=== PATIENT | female | born 1955 | race Caucasian/White ===

== ENCOUNTER → 2018-05-01 15:09 | Outpatient (CLI) | payer MEDICARE, OTHER, SELFPAY ==
[2018-05-01 15:45] LABS: Add Manual Diff / Slide Review NO; Basophils Percent Auto 0.9 % (0-2); Eosinophils Percent Auto 0.4 % (2-4); Hematocrit 40.1 % (36-46); Hemoglobin 13.5 g/dL (12.0-16.0); Lymphocytes Percent Auto 28.2 % (25-40); Mean Corpuscular HGB Conc 33.8 % (30-36); Mean Corpuscular Hemoglobin 31.4 PG (26-34); Mean Corpuscular Volume 92.8 fL (80-100); Monocytes Percent Auto 6.2 % (3-14); Neutrophils Absolute Auto 4000 /uL (3000-5900); Neutrophils Percent Auto 64.3 % (50-75); Platelet Count 226 X10^3/uL (150-400); Red Blood Cell Count 4.32 X10^6/uL (4.0-5.2); Red Cell Distribution Width 13.3 % (11.6-14.8); White Blood Cell Count 6.3 X10^3/uL (4.5-11.0)
[2018-05-01 16:05] LABS: Alanine Aminotransferase 27 IU/L (9-52); Albumin 4.5 g/dL (3.5-5.0); Albumin Globulin Ratio 1.6 (1.0-2.8); Alkaline Phosphatase 48 U/L (38-126); Aspartate Aminotransferase 31 IU/L (14-36); BUN Creatinine Ratio 26.3 (6-22); Bilirubin Total 0.2 mg/dL (0.2-1.3); Blood Urea Nitrogen 21 mg/dL (7-17); Calcium 9.5 mg/dL (8.4-10.2); Carbon Dioxide 29 mmol/L (22-32); Chloride 103 mmol/L (98-107); Estimated Glomerular Filt Rate > 60.0 mL/min (>60); Globulin 2.9 g/dL (1.7-4.1); Glucose 99 mg/dL (80-110); HEMOLYSIS < 15 (0-50); Potassium 4.5 mmol/L (3.4-5.1); Sodium 141 mmol/L (137-145); Total Protein 7.4 g/dL (6.3-8.2)
== END ==
PROVIDERS: Family Provider Family Medicine; PCP Family Medicine; Visit Provider Nurse Practitioner Gerontology
DX: D05.12 Intraductal carcinoma in situ of left breast (principal)
CPT/HCPCS: 36415; 80053; 85025; 99213

== ENCOUNTER → 2018-07-26 08:59 | Outpatient (CLI) | payer MEDICARE, OTHER, SELFPAY ==
--- NOTE | 2018-07-26 | DI.MG.S_ITS ---
BILATERAL DIGITAL SCREENING MAMMOGRAM 3D/2D WITH CAD: 07/26/2018 CLINICAL: Routine screening. Comparison is made to exams dated: 12/30/2016 mammogram, 12/29/2015 mammogram, 07/12/2017 mammogram - [facility], and 07/26/2017 stereotactic biopsy - [facility]. The tissue of both breasts is heterogeneously dense. This may lower the sensitivity of mammography. Current study was also evaluated with a Computer Aided Detection (CAD) system. There are benign post operative findings in the left breast. There is irregular equal density architectural distortion with an indistinct margin in the left breast at 7 o'clock anterior depth. This correlates with surgery. There are surgical clips, a post-surgical scar, skin retraction, thickening, and trabecular thickening associated with the architectural distortion. No other significant masses, calcifications, or other findings are seen in either breast. IMPRESSION: The irregular equal density architectural distortion in the left breast is consistent with a previous surgery and is benign. There is no mammographic evidence of malignancy. Return to annual mammogram screening schedule is recommended.(01/21/2019) This exam was interpreted at Station ID: [id number]. NOTE: For mammograms, a report in lay terms will be sent to the patient. Approximately 15% of breast malignancies will not be visualized mammographically. In the management of a palpable breast mass, a negative mammogram must not discourage biopsy of a clinically suspicious lesion. Electronically Signed By: Lito chamberlain/sander:07/26/2018 11:37:05 copy to: Rupinder Chavez letter sent: Normal Exam ACR BI-RADS Category 2: Benign Finding(s) 3342F
== END ==
PROVIDERS: PCP Family Medicine; Visit Provider Nurse Practitioner Gerontology
DX: Z12.31 Encounter for screening mammogram for malignant neoplasm of breast (principal)
CPT/HCPCS: 77063; 77067

== ENCOUNTER 2018-08-07 15:00 | Oncology outpatient (ONC) | payer MEDICARE, OTHER, SELFPAY ==
--- NOTE | 2018-05-04 12:42 | ONC.APRN.PN ---
Assessment and Plan (1) Ductal carcinoma in situ (DCIS) of left breast Current visit: No Status: Acute 05/04/18 12:46 The patient is a 63 year old Female who is being seen in the clinic 05/04/2018 for diagnosis of ductal carcinoma in situ. She remains on daily tamoxifen without adverse effect. Tamoxifen was initiated November 05, 2017. No new complaints on exam whatsoever today. Overall feeling quite healthy. CBC and CMP unremarkable. Return to clinic late June or early July. Six month mammogram prior, we will review at visit. 05/04/18 13:27 - Time Spent with Patient 35 mins PN -Subjective Interval history: The patient is a 63 year old Female who is being seen in the clinic 05/04/2018 for diagnosis of ductal carcinoma in situ. Yoli presents today for routine follow up. She has no new complaints today. Overall is feeling well. She reports she is tolerating her tamoxifen without adverse effects. She does report some mild hot flashes however they are infrequent and not bothersome. She denies vaginal bleeding. No abdominal bloating, change in appetite, early satiety. No unexplained weight loss. No pain or cramping or swelling in lower extremities. She has appointment for routine annual physical with her primary care provider tomorrow. Routine annual screening mammogram January 20, 2018 did not demonstrate any evidence of malignancy. Recommendation is to repeat in 1 year. She presents today for 3 month clinical evaluation. During the interval she has been evaluated by her primary care provider also her breast surgeon Dr. Alford. Yoli has no new complaints whatsoever on exam today. Overall feeling really good. Occasional mild hot flashes which she reports are tolerable. Activity tolerance is very good. No recent illnesses or infections. She does do breast exam she has not noticed any changes. No cough, fever. No lower extremity swelling, pain, redness. No headaches. HISTORY: A unilateral diagnostic mammogram was performed on the left on 07/12/2017 with the finding of a heterogeneous calcification in the left breast 8:00 anterior depth suspicious for malignancy A stereotactic biopsy was performed on 07/26/2017 with a finding of a low-grade ductal carcinoma in situ in one of at least 4 fragmented cores greatest length 3 mm low nuclear grade without comedonecrosis and ER strongly positive at 95%. MRI 08/18/2017 confirmed findings (see report below) Surgery: left lumpectomy after needle localization 09/28/17 PATH: DCIS single focus 0.2mm intraductal solid nuclear grade low 0.3 cm margin pTis pNX Saw Radiation Oncology, recommended 4 weeks of radiation. She recently visited [facility] and consulted with a medical/radiation oncologist who advised the statistical benefit of radiation would be a one or 2% reduction in recurrence. Thereby patient elected to forego radiation therapy. She is currently taking tamoxifen which she began 11/05/2017. So far tolerating without significant adverse effects. She does report some mild hot flashes however they are infrequent and not bothersome. She denies any new bony, muscular, joint pain. No vaginal bleeding, abd bloating, early satiety. No crampy leg pain. No fatigue. No nausea. No insomnia. Appetite is stable. Energy level is quite good she is currently working full-time. Per provider at [facility] recommendation is for bilateral screening mammogram every 6 months for DCIS. Results - Imaging Additional studies: Procedures [Endoscopic] polypectomy of rectum (01/28/15) Home Medications and Allergies Home Medications Medication Instructions Recorded Confirmed Type Fish Oil 1,000 mg PO QDAY #0 05/16/13 05/01/18 History tretinoin [Retin-A] 1 killian TOPICAL PRN PRN #0 09/29/16 05/01/18 History multivitamin [Multiple Vitamins] 1 tab PO #0 09/26/17 05/01/18 History tamoxifen 20 mg PO QDAY #90 tab 05/04/18 Rx Allergies Allergy/AdvReac Type Severity Reaction Status Date / Time Penicillins [PENICILLINS] Allergy Severe ANAPHYLAXIS Unverified 01/25/18 12:22 amitriptyline [AMITRIPTYLINE] Allergy Intermediate confusion, Unverified 01/25/18 12:22 increased heart rate latex [LATEX] Allergy Unknown Unverified 01/25/18 12:22 cyclobenzaprine AdvReac Severe Unverified 01/25/18 12:22 [CYCLOBENZAPRINE] oxycodone [OXYCODONE] AdvReac Intermediate vomiting, Unverified 01/25/18 12:22 dizziness TAPE Allergy Unknown Uncoded 01/25/18 12:22 Exam Narrative: well appearing - Constitutional positive no acute distress - Routine HEENT Exam Eye: Present: conjunctivae pink. Absent: conjunctival icterus, scleral injection ENT: Present: mucous membranes moist, oropharynx clear - Routine Neck Exam Present: supple. Absent: lymphadenopathy - Routine Respiratory Exam Present: Clear to auscultation bilaterally. Absent: rales, rhonchi, wheezes - Routine Cardiovascular Exam Present: RRR, S1, S2 - Routine Abdominal Exam Present: soft, normoactive bowel sounds. Absent: tenderness, distended, organomegaly - Routine Extremities Exam Absent: edema, calf tenderness - Routine Skin Exam Present: intact, normal turgor. Absent: petechiae, rash - Routine Neurological Exam Present: alert, oriented X3 - Routine Psychiatric Exam Present: normal affect
[2018-05-04 12:47] VITALS: BP 111/79; PULSE 66; RESP 18; TEMP 36.6; O2SAT 98
--- NOTE | 2018-08-07 14:16 | P.PNONC_ITS ---
PN -Subjective Interval history: The patient is a 63 year old Female who is being seen in the clinic 08/07/2018 for diagnosis of ductal carcinoma in situ. She presents today to review results of bilateral screening mammogram dated July 26, 2018. She has no new complaints or concerns to report today. She remains on daily tamoxifen. Overall feeling quite well. No recent illnesses or infections. No vaginal bleeding. No edema. Appetite is stable, weight is stable. No issue with bladder or bowels. No headaches. Reassuringly mammogram dated July 26, 2018 was without evidence of malignancy recommendation is to resume annual mammogram screenings. HISTORY: A unilateral diagnostic mammogram was performed on the left on 07/12/2017 with the finding of a heterogeneous calcification in the left breast 8:00 anterior depth suspicious for malignancy A stereotactic biopsy was performed on 07/26/2017 with a finding of a low-grade ductal carcinoma in situ in one of at least 4 fragmented cores greatest length 3 mm low nuclear grade without comedonecrosis and ER strongly positive at 95%. MRI 08/18/2017 confirmed findings (see report below) Surgery: left lumpectomy after needle localization 09/28/17 PATH: DCIS single focus 0.2mm intraductal solid nuclear grade low 0.3 cm margin pTis pNX Saw Radiation Oncology, recommended 4 weeks of radiation. She recently visited [facility] and consulted with a medical/radiation oncologist who advised the statistical benefit of radiation would be a one or 2% reduction in recurrence. Thereby patient elected to forego radiation therapy. She is currently taking tamoxifen which she began 11/05/2017. So far tolerating without significant adverse effects. She does report some mild hot flashes however they are infrequent and not bothersome. She denies any new bony, muscular, joint pain. No vaginal bleeding, abd bloating, early satiety. No crampy leg pain. No fatigue. No nausea. No insomnia. Appetite is stable. Energy level is quite good she is currently working full-time. Per provider at [facility] recommendation is for bilateral screening mammogram every 6 months for DCIS. Home Medications and Allergies Home Medications Medication Instructions Recorded Confirmed Type Fish Oil 1,000 mg PO QDAY #0 05/16/13 05/01/18 History tretinoin [Retin-A] 1 killian TOPICAL PRN PRN #0 09/29/16 05/01/18 History multivitamin [Multiple Vitamins] 1 tab PO #0 09/26/17 05/01/18 History tamoxifen 20 mg PO QDAY #90 tab 05/04/18 Rx Allergies Allergy/AdvReac Type Severity Reaction Status Date / Time Penicillins [PENICILLINS] Allergy Severe ANAPHYLAXIS Unverified 01/25/18 12:22 amitriptyline [AMITRIPTYLINE] Allergy Intermediate confusion, Unverified 12:22 increased heart rate latex [LATEX] Allergy Unknown Unverified 01/25/18 12:22 cyclobenzaprine AdvReac Severe Unverified 01/25/18 12:22 [CYCLOBENZAPRINE] oxycodone [OXYCODONE] AdvReac Intermediate vomiting, Unverified 01/25/18 12:22 dizziness TAPE Allergy Unknown Uncoded 01/25/18 12:22 Exam - Constitutional positive no acute distress Results - Imaging Additional studies: Procedures [Endoscopic] polypectomy of rectum (01/28/15) Assessment and Plan (1) Ductal carcinoma in situ (DCIS) of left breast Current visit: No Status: Acute The patient is a 63 year old Female who is being seen in the clinic 08/07/2018 for diagnosis of ductal carcinoma in situ. She presents today to review results of mammogram. Most recent mammogram dated July 26, 2018 was reported without evidence of malignancy. The patient does have chronic changes consistent with previous surgery which remain unchanged. Patient will be due for annual bilateral screening mammogram in January of 2019. Patient will also be due for her 6 month visit at that point in time we will check CBC, CMP, CA 27-29. - Time Spent with Patient 15 mins with pt 5 mins review of records prior[ 5 mins dictation
[2018-08-07 15:33] VITALS: BP 120/80; PULSE 67; RESP 18; TEMP 36.8; O2SAT 99
== END 2018-08-08 12:00 ==
PROVIDERS: Family Provider Family Medicine; PCP Family Medicine; Visit Provider Nurse Practitioner Gerontology
DX: D05.12 Intraductal carcinoma in situ of left breast (principal); Z79.810 Long term (current) use of selective estrogen receptor modulators (SERMs)
CPT/HCPCS: 99214

== ENCOUNTER → 2018-10-12 13:36 | Outpatient (CLI) | payer MEDICARE, OTHER, SELFPAY | PROVIDERS: Family Provider Family Medicine; PCP Family Medicine; Visit Provider Physician Assistant | DX: L03.011 Cellulitis of right finger (principal) | CPT/HCPCS: 87077; 87102 ==

== ENCOUNTER → 2019-02-05 08:32 | Outpatient (CLI) | payer MEDICARE, OTHER, SELFPAY ==
[2019-02-05 09:05] LABS: Add Manual Diff / Slide Review NO; Basophils Absolute Auto 0 /uL (0-100); Basophils Percent Auto 0.9 % (0-2); Eosinophils Absolute Auto 0 /uL (0-450); Eosinophils Percent Auto 0.6 % (2-4); Hematocrit 40.3 % (36-46); Hemoglobin 13.8 g/dL (12.0-16.0); Lymphocytes Absolute Auto 1700 /uL (1100-4500); Lymphocytes Percent Auto 38.3 % (25-40); Mean Corpuscular HGB Conc 34.1 % (30-36); Mean Corpuscular Hemoglobin 31.9 PG (26-34); Mean Corpuscular Volume 93.5 fL (80-100); Monocytes Absolute Auto 400 /uL (0-900); Monocytes Percent Auto 7.7 % (3-14); Neutrophils Absolute Auto 2400 /uL (1500-7000); Neutrophils Percent Auto 52.5 % (50-75); Platelet Count 238 X10^3/uL (150-400); Red Blood Cell Count 4.31 X10^6/uL (4.0-5.2); Red Cell Distribution Width 13.4 % (11.6-14.8); White Blood Cell Count 4.5 X10^3/uL (4.5-11.0)
[2019-02-05 09:31] LABS: Alanine Aminotransferase 22 IU/L (9-52); Albumin 4.5 g/dL (3.5-5.0); Albumin Globulin Ratio 1.7 (1.0-2.8); Alkaline Phosphatase 43 U/L (38-126); Aspartate Aminotransferase 31 IU/L (14-36); BUN Creatinine Ratio 21.3 (6-22); Bilirubin Total 0.3 mg/dL (0.2-1.3); Blood Urea Nitrogen 17 mg/dL (7-17); Calcium 9.4 mg/dL (8.4-10.2); Carbon Dioxide 28 mmol/L (22-32); Chloride 102 mmol/L (98-107); Estimated Glomerular Filt Rate > 60.0 mL/min (>60); Globulin 2.7 g/dL (1.7-4.1); Glucose 88 mg/dL (80-110); HEMOLYSIS < 15 (0-50); Sodium 139 mmol/L (137-145); Total Protein 7.2 g/dL (6.3-8.2)
[2019-02-05 09:38] LABS: Cholesterol 157 mg/dL (140-199); HDL Cholesterol 74 mg/dL (40-60); LDL Cholesterol Calculated 58 mg/dL (<100); Triglycerides 127 mg/dL (35-150)
[2019-02-08 16:38] LABS: Cancer Antigen 27.29 13 U/mL (< 38)
== END ==
PROVIDERS: Nurse Practitioner Gerontology; PCP Family Medicine; Visit Provider Family Medicine
DX: D05.12 Intraductal carcinoma in situ of left breast (principal); I10 Essential (primary) hypertension
CPT/HCPCS: 36415; 80053; 80061; 85025; 86300

== ENCOUNTER → 2019-02-05 11:27 | Outpatient (CLI) | payer MEDICARE, OTHER, SELFPAY ==
--- NOTE | 2019-02-05 | DI.MG.S_ITS ---
BILATERAL DIGITAL SCREENING MAMMOGRAM 3D/2D WITH CAD: 02/05/2019 CLINICAL: Routine screening. Personal history of left breast cancer. Comparison is made to exams dated: 07/26/2018 mammogram, 01/20/2018 mammogram, and 12/30/2016 mammogram - [facility]. The tissue of both breasts is heterogeneously dense. This may lower the sensitivity of mammography. Current study was also evaluated with a Computer Aided Detection (CAD) system. There are benign post operative findings in the left breast. No significant masses, calcifications, or other findings are seen in either breast. There has been no significant interval change. IMPRESSION: There is no mammographic evidence of malignancy. A 1 year screening mammogram is recommended. This exam was interpreted at Station ID: [id number]. NOTE: For mammograms, a report in lay terms will be sent to the patient. Approximately 15% of breast malignancies will not be visualized mammographically. In the management of a palpable breast mass, a negative mammogram must not discourage biopsy of a clinically suspicious lesion. Electronically Signed By: Selena shoemaker/sander:02/05/2019 12:53:33 copy to: Rupinder Chavez letter sent: Normal Exam ACR BI-RADS Category 2: Benign Finding(s) 3342F
== END ==
PROVIDERS: PCP Family Medicine; Visit Provider Family Medicine
DX: Z12.31 Encounter for screening mammogram for malignant neoplasm of breast (principal); Z85.3 Personal history of malignant neoplasm of breast
CPT/HCPCS: 77063; 77067

== ENCOUNTER 2020-04-27 08:24 | Emergency (ER) | payer MEDICARE, OTHER, SELFPAY ==
[2020-04-27] VITALS (8 sets, daily range): BP systolic 119–149; BP diastolic 71–89; PULSE 66–77; RESP 14–33; TEMP 36.7; O2SAT 97–100; BMI 21.6
--- NOTE | 2020-04-27 08:51 | ED_ITS ---
HPI - GI Bleed General Chief complaint: GI Bleed Stated complaint: Diarreah all day yesterday & stomach cramps Time Seen by Provider: 04/27/20 08:38 Source: patient Mode of arrival: Ambulatory Limitations: no limitations History of Present Illness HPI Narrative: The patient is a 65-year-old female who presents with abdominal cramping diarrhea and 1 episode of bloody stool. She says her symptoms started yesterday she had intense cramping and then had about 3 episodes of diarrhea. Last evening she noted that there was blood at about midnight. She said it was bright red on the toilet paper but noticed some clots in the toilet as well. She denies any nausea or vomiting no dizziness lightheadedness or shortness of breath. Her cramping has improved but she had hard time sleeping due to the intense abdominal cramping. She said that her had similar episode the day before but did not have any bloody stool. He has since improved. She is aspirin 81 mg daily. MD complaint: melena Related Data Home Medications Medication Instructions Recorded Confirmed Fish Oil 500 mg PO QDAY #0 05/16/13 10/24/19 tretinoin [Retin-A] 1 killian TOPICAL PRN PRN #0 09/29/16 10/24/19 multivitamin [Multiple Vitamins] 1 tab PO DAILY #0 09/26/17 10/24/19 aspirin 81 mg DAILY 08/09/19 10/24/19 calcium carbonate [Calcium 500] 500 mg DAILY 08/09/19 10/24/19 calcium carbonate [Calcium 500] 500 mg DAILY 08/09/19 10/24/19 cholecalciferol (vitamin D3) 1,000 unit DAILY 08/09/19 10/24/19 [Vitamin D3] lactobacillus combination no.4 1 cell DAILY 08/09/19 10/24/19 [Probiotic] Previous Rx's Medication Instructions Recorded tamoxifen 20 mg PO QDAY #90 tab 04/08/20 buspirone 5 mg tablet 5 mg PO BID #60 tab 04/23/20 Allergies Allergy/AdvReac Type Severity Reaction Status Date / Time adhesive tape Allergy Severe Rash Verified 10/24/19 09:16 Penicillins [PENICILLINS] Allergy Severe ANAPHYLAXIS Verified 10/24/19 09:16 amitriptyline [AMITRIPTYLINE] Allergy Intermediate confusion, Verified 10/24/19 09:16 increased heart rate latex [LATEX] Allergy Intermediate Rash Verified 10/24/19 09:16 cyclobenzaprine AdvReac Intermediate Vomiting, Verified 10/24/19 09:16 [CYCLOBENZAPRINE] dizziness, weak oxycodone [OXYCODONE] AdvReac Intermediate vomiting, Verified 10/24/19 09:16 dizziness Review of Systems Review of Systems ROS Unobtainable: All systems reviewed & are unremarkable except as noted in HPI and below Constitutional Constitutional: Denies chills, Denies fever(s), Denies lethargy and Denies weakness Eyes Eyes: Denies change in vision, Denies eye discharge, Denies irritation and Denies loss of vision Cardiovascular Cardiovascular: Denies chest pain, Denies irregular heart rhythm, Denies lightheadedness, Denies palpitations, Denies dyspnea, Denies dyspnea on exertion and Denies orthopnea Respiratory Respiratory: Denies cough, Denies dyspnea, Denies dyspnea on exertion and Denies wheezing Gastrointestinal Gastrointestinal: Reports as per HPI Integumentary/Breasts Skin/Breast: Denies pruritus, Denies erythema, Denies rash and Denies wounds Neurologic Neurologic: Denies loss of vision and Denies weakness Endocrine Endocrine: Denies palpitations Allergic/Immunologic Allergic/Immunologic: Denies wheezing Patient History Medical History Actinic keratosis (Chronic) Surgical History Status post breast biopsy Family History Brother Age: 65 Hypertension Migraines Cancer Brother Age: 61 Asthma Depression Father Hypertension Transient global amnesia Mother Age: 90 Gout Cataracts, both eyes Social History Smoking Status: Never smoker alcohol intake: current (Hardly at all, maybe one glass of wine a week) substance use type: does not use Smoking Status: Never smoker alcohol intake frequency: 0-2 drinks per day Substance Use Type: does not use Exam Initial Vital Signs Initial Vital Signs: Vital Signs Temperature 98.0 F 04/27/20 08:34 Pulse Rate 77 04/27/20 08:34 Respiratory Rate 16 07/12/20 08:34 Blood Pressure 142/78 H 04/27/20 08:34 Pulse Oximetry 98 04/27/20 08:34 GENERAL: Well-appearing, well-nourished and in no acute distress. HEENT: Head atraumatic,EOMI, pupils reactive, face symmetric, moist mucous membranes CARDIOVASCULAR: Regular rate and rhythm without murmurs, rubs or gallops. RESPIRATORY: Breath sounds equal bilaterally, no wheezes rales or rhonchi. ABDOMEN: Soft, nontender. Normoactive bowel sounds all 4 quadrants. No guarding or rebound. RECTAL: Hemoccult-positive trace blood noted, no hemorrhoids, nontender EXTREMITIES: Normal range of motion, no clubbing or edema. Neurovascularly intact NEUROLOGICAL: Alert and oriented x4.Normal gait and speech. SKIN: Warm, dry, no laceration, no petechiae, no rashes or lesions. Course Orders Ordered: ED Orders 04/27/20 08:50 Complete Blood Count AUTO DIFF Stat 04/27/20 09:28 Comprehensive Metabolic Panel Stat Lactate (Lactic Acid) Stat Lipase Stat Partial Thromboplastin Time Stat Prothrombin Time INR Stat Type and Screen Stat Vital Signs Vital signs: Vital Signs - 8 hr 04/27/20 08:34 04/27/20 09:10 04/27/20 09:11 Temperature 98.0 F Pulse Rate 77 73 71 Respiratory Rate 16 21 16 Blood Pressure 142/78 H 149/89 H Pulse Oximetry 98 100 98 04/27/20 09:30 04/27/20 10:00 04/27/20 10:30 Temperature Pulse Rate 70 66 71 Respiratory Rate 15 14 33 H Blood Pressure 136/80 119/71 Pulse Oximetry 97 98 99 04/27/20 10:31 04/27/20 10:33 Temperature Pulse Rate 72 Respiratory Rate 29 H 16 Blood Pressure 136/88 Pulse Oximetry 99 MDM - GI Bleed Lab Data Attestation: I reviewed the patient's lab results. Result diagrams: 04/27/20 08:50 04/27/20 09:28 Labs: Lab Results 04/27/20 04/27/20 04/27/20 Range/Units 08:50 09:28 09:28 WBC 8.6 (4.5-11.0) X10^3/uL RBC 4.29 (4.0-5.2) X10^6/uL Hgb 13.2 (12.0-16.0) g/dL Hct 39.7 (36-46) % MCV 92.7 (80-100) fL MCH 30.8 (26-34) PG MCHC 33.2 (30-36) % RDW 13.8 (11.6-14.8) % Plt Count 223 (150-400) X10^3/uL Neut % (Auto) 73.9 (50-75) % Lymph % (Auto) 19.4 L (25-40) % Gaston % (Auto) 5.7 (3-14) % Eos % (Auto) 0.3 L (2-4) % Baso % (Auto) 0.7 (0-2) % Neut # (Auto) 6400 (4053-2953) /uL Lymph # (Auto) 1700 (8330-2305) /uL Gaston # (Auto) 500 (0-900) /uL Eos # (Auto) 0 (0-450) /uL Baso # (Auto) 100 (0-100) /uL PT 11.3 (10.1-12.7) SECONDS INR 1.0 (0.9-1.3) APTT 25 L (26.4-36.2) SECONDS Sodium 134 L (137-145) mmol/L Potassium 3.9 (3.4-5.1) mmol/L Chloride 102 (98-107) mmol/L Carbon Dioxide 25 (22-32) mmol/L BUN 16 (7-17) mg/dL Creatinine 0.66 (0.52-1.04) mg/dL Estimated GFR > 60.0 (>60) mL/min BUN/Creatinine Ratio 24.2 H (6-22) Glucose 92 (80-110) mg/dL Lactate (0.7-2.1) mmol/L Calcium 9.6 (8.4-10.2) mg/dL Total Bilirubin 0.5 (0.2-1.3) mg/dL AST 26 (14-36) IU/L ALT 15 (<35) IU/L Alkaline Phosphatase 46 (38-126) U/L Total Protein 7.1 (6.3-8.2) g/dL Albumin 4.4 (3.5-5.0) g/dL Globulin 2.7 (1.7-4.1) g/dL Albumin/Globulin Ratio 1.6 (1.0-2.8) Lipase 133 (23-300) U/L Blood Type Antibody Screen 04/27/20 04/27/20 Range/Units 09:28 09:28 WBC (4.5-11.0) X10^3/uL RBC (4.0-5.2) X10^6/uL Hgb (12.0-16.0) g/dL Hct (36-46) % MCV (80-100) fL MCH (26-34) PG MCHC (30-36) % RDW (11.6-14.8) % Plt Count (150-400) X10^3/uL Neut % (Auto) (50-75) % Lymph % (Auto) (25-40) % Gaston % (Auto) (3-14) % Eos % (Auto) (2-4) % Baso % (Auto) (0-2) % Neut # (Auto) (0557-5918) /uL Lymph # (Auto) (0530-4537) /uL Gaston # (Auto) (0-900) /uL Eos # (Auto) (0-450) /uL Baso # (Auto) (0-100) /uL PT (10.1-12.7) SECONDS INR (0.9-1.3) APTT (26.4-36.2) SECONDS Sodium (137-145) mmol/L Potassium (3.4-5.1) mmol/L Chloride (98-107) mmol/L Carbon Dioxide (22-32) mmol/L BUN (7-17) mg/dL Creatinine (0.52-1.04) mg/dL Estimated GFR (>60) mL/min BUN/Creatinine Ratio (6-22) Glucose (80-110) mg/dL Lactate 1.3 (0.7-2.1) mmol/L Calcium (8.4-10.2) mg/dL Total Bilirubin (0.2-1.3) mg/dL AST (14-36) IU/L ALT (<35) IU/L Alkaline Phosphatase (38-126) U/L Total Protein (6.3-8.2) g/dL Albumin (3.5-5.0) g/dL Globulin (1.7-4.1) g/dL Albumin/Globulin Ratio (1.0-2.8) Lipase (23-300) U/L Blood Type A Positive Antibody Screen Negative MDM Narrative Medical decision making narrative: Patient is hemodynamically stable, hemoglobin hematocrit are within normal limits she has had no further episodes of diarrhea or bloody stool. She does take aspirin daily but no other anticoagulation medication. At this time I believe her symptoms to be related to gastroenteritis her had similar symptoms in has now completely resolved. I recommend going home and self-monitoring if symptoms should worsen she needs to return to ED Discharge Plan Departure Patient Disposition: Home Clinical Impression: Gastroenteritis Discharge Date/Time: 04/27/20 10:36 Instructions: DI for Viral Gastroenteritis -- Adult Activity Restrictions/Additional Instructions: *You have been diagnosed with gastroenteritis *What to do: I believe your symptoms are caused by a virus at this time. This can cause some bleeding. I suspect that year bleeding decreases over the next day. However please look and be sure. *Continue to take medications as directed Tylenol 1000 mg every 6 hours if needed for [id number] pain *Follow up with your primary care provider in 2-3 days *Return to ER if you should have increasing bleeding, increasing cramping, or any new, worsening or concerning symptoms Prescriptions: No Action Fish Oil 500 mg PO QDAY Qty: 0 RF: 0 tretinoin [Retin-A] 0.05 % cream 1 killian Topical PRN PRN (Reason: Rash) Qty: 0 RF: 0 multivitamin [Multiple Vitamins] 1 EACH tablet 1 tab PO DAILY Qty: 0 RF: 0 buspirone 5 mg tablet 5 mg PO BID Qty: 60 RF: 1 aspirin 81 mg Tablet,Delayed Release (Dr/Ec) 81 mg DAILY RF: 0 calcium carbonate [Calcium 500] 500 mg calcium (1,250 mg) Tablet 500 mg DAILY RF: 0 calcium carbonate [Calcium 500] 500 mg calcium (1,250 mg) Tablet 500 mg DAILY RF: 0 cholecalciferol (vitamin D3) [Vitamin D3] 1,000 unit Capsule 1,000 unit DAILY RF: 0 Probiotic 3 billion cell Capsule 1 cell DAILY RF: 0 tamoxifen 20 MG tablet 20 mg PO QDAY Qty: 90 RF: 0 Referrals: Rupinder Chavez DO [Primary Care Provider] -
[2020-04-27 09:27] LABS: Add Manual Diff / Slide Review NO; Basophils Absolute Auto 100 /uL (0-100); Basophils Percent Auto 0.7 % (0-2); Eosinophils Absolute Auto 0 /uL (0-450); Eosinophils Percent Auto 0.3 % (2-4); Hematocrit 39.7 % (36-46); Hemoglobin 13.2 g/dL (12.0-16.0); Lymphocytes Absolute Auto 1700 /uL (1100-4500); Lymphocytes Percent Auto 19.4 % (25-40); Mean Corpuscular HGB Conc 33.2 % (30-36); Mean Corpuscular Hemoglobin 30.8 PG (26-34); Mean Corpuscular Volume 92.7 fL (80-100); Monocytes Absolute Auto 500 /uL (0-900); Monocytes Percent Auto 5.7 % (3-14); Neutrophils Absolute Auto 6400 /uL (1500-7000); Neutrophils Percent Auto 73.9 % (50-75); Platelet Count 223 X10^3/uL (150-400); Red Blood Cell Count 4.29 X10^6/uL (4.0-5.2); Red Cell Distribution Width 13.8 % (11.6-14.8); White Blood Cell Count 8.6 X10^3/uL (4.5-11.0)
[2020-04-27 09:33] LABS: Prothrombin Time 11.3 SECONDS (10.1-12.7)
[2020-04-27 09:36] LABS: PTT Partial Thromboplastin Tim 25 SECONDS (26.4-36.2)
[2020-04-27 09:39] LABS: Alanine Aminotransferase 15 IU/L (<35); Albumin 4.4 g/dL (3.5-5.0); Albumin Globulin Ratio 1.6 (1.0-2.8); Alkaline Phosphatase 46 U/L (38-126); Aspartate Aminotransferase 26 IU/L (14-36); BUN Creatinine Ratio 24.2 (6-22); Bilirubin Total 0.5 mg/dL (0.2-1.3); Blood Urea Nitrogen 16 mg/dL (7-17); Calcium 9.6 mg/dL (8.4-10.2); Carbon Dioxide 25 mmol/L (22-32); Chloride 102 mmol/L (98-107); Estimated Glomerular Filt Rate > 60.0 mL/min (>60); Globulin 2.7 g/dL (1.7-4.1); Glucose 92 mg/dL (80-110); HEMOLYSIS < 15 (0-50); Lactate (Lactic Acid) 1.3 mmol/L (0.7-2.1); Lipase 133 U/L (23-300); Potassium 3.9 mmol/L (3.4-5.1); Sodium 134 mmol/L (137-145); Total Protein 7.1 g/dL (6.3-8.2)
== END 2020-04-27 10:36 | disposition home or self-care (01) ==
PROVIDERS: Emergency Provider Emergency Medicine; PCP Family Medicine
DX: K52.9 Noninfective gastroenteritis and colitis, unspecified (principal); Z79.82 Long term (current) use of aspirin
CPT/HCPCS: 36415; 80053; 83605; 83690; 85025; 85610; 85730; 86850; 86900; 86901; 99283; 99284

== ENCOUNTER → 2020-06-02 13:40 | Outpatient (CLI) | payer MEDICARE, OTHER, SELFPAY | PROVIDERS: PCP Family Medicine; Referring Provider Family Medicine; Visit Provider Family Medicine | DX: M85.88 Other specified disorders of bone density and structure, other site (principal); Z78.0 Asymptomatic menopausal state; Z85.3 Personal history of malignant neoplasm of breast | CPT/HCPCS: 77080 ==

== ENCOUNTER → 2020-06-06 15:03 | Outpatient (CLI) | payer MEDICARE, OTHER, SELFPAY ==
--- NOTE | 2020-06-06 | DI.US.S_ITS ---
LIMITED ULTRASOUND OF LEFT BREAST: 06/06/2020 CLINICAL: Palpable left breast lump by physician. Comparison is made to exams dated: 02/21/2020 mammogram - [facility], 02/05/2019 mammogram, 07/26/2018 mammogram, 01/20/2018 mammogram, 09/28/2017 localization, and 09/28/2017 [facility]. Real-time and continuous wave Doppler ultrasound of the left breast 2-3 o'clock region were performed. No significant abnormalities were seen sonographically in the left breast. Specifically, no finding to correspond to the patient's 2-3:00 palpable abnormality. IMPRESSION: NEGATIVE There is no sonographic evidence of malignancy. Return to annual mammogram screening schedule is recommended. Future imaging is recommended as follows: 02/21/2021 screening mammogram. Findings and recommendations were conveyed to the patient at time of exam. This exam was interpreted at Station ID: [id number]. Electronically Signed By: Paula livingston/:06/06/2020 17:13:40 copy to: Rupinder Chavez letter sent: Normal Exam Ultrasound BI-RADS: 1 Negative
== END ==
PROVIDERS: PCP Family Medicine; Referring Provider Family Medicine; Visit Provider Family Medicine
DX: N63.21 Unspecified lump in the left breast, upper outer quadrant (principal); D05.12 Intraductal carcinoma in situ of left breast
CPT/HCPCS: 76642

== ENCOUNTER → 2020-08-27 10:41 | Outpatient (CLI) | payer MEDICARE, OTHER, SELFPAY ==
[2020-08-27 12:45] LABS: COVID19 -Nasal RAPID Negative (Negative)
== END ==
PROVIDERS: PCP Family Medicine; Visit Provider Physician Assistant
DX: Z11.59 Encounter for screening for other viral diseases (principal)
CPT/HCPCS: 87635

== ENCOUNTER → 2020-11-07 13:44 | Outpatient (CLI) | payer MEDICARE, OTHER, SELFPAY ==
[2020-11-07] MEDS: COVID-19 VACC #1, MRNA(MOD) 100 MCG/0.5 ML VIAL IM (13:48)
== END ==
PROVIDERS: PCP Family Medicine; Visit Provider Internal Medicine
DX: Z23 Encounter for immunization (principal)
CPT/HCPCS: 0011A; 91301

== ENCOUNTER → 2020-12-05 14:48 | Outpatient (CLI) | payer MEDICARE, OTHER, SELFPAY ==
[2020-12-05] MEDS: COVID-19 VACC #2, MRNA(MOD) 100 MCG/0.5 ML VIAL IM (15:00)
== END ==
PROVIDERS: PCP Family Medicine; Visit Provider Internal Medicine
DX: Z23 Encounter for immunization (principal)
CPT/HCPCS: 0012A; 91301

== ENCOUNTER → 2021-02-23 11:25 | Outpatient (CLI) | payer MEDICARE, OTHER, SELFPAY ==
--- NOTE | 2021-02-23 | DI.MG.S_ITS ---
BILATERAL DIGITAL SCREENING MAMMOGRAM 3D/2D WITH CAD: 02/23/2021 CLINICAL: Routine screening. Breast cancer. Comparison is made to exams dated: 02/21/2020 mammogram - [facility], 02/05/2019 mammogram, and 07/26/2018 mammogram - [facility]. The tissue of both breasts is heterogeneously dense. This may lower the sensitivity of mammography. Current study was also evaluated with a Computer Aided Detection (CAD) system. There are benign post operative findings in the left breast. No significant masses, calcifications, or other findings are seen in either breast. There has been no significant interval change. IMPRESSION: BENIGN There is no mammographic evidence of malignancy. A 1 year screening mammogram is recommended. This exam was interpreted at Station ID: [id number]. NOTE: For mammograms, a report in lay terms will be sent to the patient. Approximately 15% of breast malignancies will not be visualized mammographically. In the management of a palpable breast mass, a negative mammogram must not discourage biopsy of a clinically suspicious lesion. Electronically Signed By: Bo stevens/sander:02/23/2021 12:15:40 copy to: YEE ALONZO letter sent: Normal Exam ACR BI-RADS Category 2: Benign Finding(s) 3342F
== END ==
PROVIDERS: PCP Family Medicine; Referring Provider Family Medicine; Visit Provider Family Medicine
DX: Z12.31 Encounter for screening mammogram for malignant neoplasm of breast (principal); Z85.3 Personal history of malignant neoplasm of breast
CPT/HCPCS: 77063; 77067

== ENCOUNTER → 2021-05-29 10:14 | Outpatient (CLI) | payer MEDICARE, OTHER, SELFPAY ==
[2021-05-29 11:19] LABS: BUN Creatinine Ratio 27.9 (6-22); Blood Urea Nitrogen 17 mg/dL (7-17); Calcium 9.7 mg/dL (8.4-10.2); Carbon Dioxide 27 mmol/L (22-32); Chloride 103 mmol/L (98-107); Estimated Glomerular Filt Rate > 60.0 mL/min (>60); Glucose 89 mg/dL (80-110); HEMOLYSIS < 15 (0-50); Potassium 4.6 mmol/L (3.4-5.1); Sodium 137 mmol/L (137-145)
== END ==
PROVIDERS: PCP Family Medicine; Referring Provider Family Medicine; Visit Provider Family Medicine
DX: I10 Essential (primary) hypertension (principal)
CPT/HCPCS: 36415; 80048

== ENCOUNTER 2021-06-04 11:47 | Emergency (ER) | payer MEDICARE, OTHER, SELFPAY ==
[2021-06-04 12:04] VITALS: BP 139/87; PULSE 77; RESP 18; TEMP 37.1; O2SAT 97; BMI 21.8
--- NOTE | 2021-06-04 12:32 | ED_ITS ---
HPI - Extremity Injury (Lower) <Isaias Vegas PA-C - Last Filed: 06/04/21 13:26> General Chief Complaint: Extremity Injury, Lower Stated Complaint: right calf hurting, can not put weight on it Time Seen by Provider: 06/04/21 12:06 Source: patient Mode of arrival: Wheelchair Limitations: no limitations History of Present Illness HPI Narrative: Yoli presents today with chief complaint of right calf pain that started yesterday while she was playing pickleball. She reports that she felt a cramp in her right calf after she was planting her foot. She had to limp over to the sideline and rest for while. The pain continued. Her pain is made worse with walking a or pressing on her right calf. She took 800 mg of ibuprofen last night which seemed to significantly help her symptoms. She is still experiencing pain in the area that is made worse with walking today but reports that it is better than yesterday. She called her primary care provider in the recommended that she come in here for evaluation. She denies any significant recent surgeries, hospitalizations, prolonged immobility, calf swelling, history of DVT, hormone replacement therapy, no recent treatment for cancer, or any other acute concerns or complaints at this time. Related Data Home Medications Medication Instructions Recorded Confirmed Fish Oil 500 mg PO QDAY #0 05/16/13 05/26/20 tretinoin 0.05 % topical cream 1 killian TOPICAL PRN PRN #0 09/29/16 05/26/20 (Retin-A) calcium carbonate 500 mg calcium 500 mg DAILY 08/09/19 05/26/20 (1,250 mg) tablet (Calcium 500) cholecalciferol (vitamin D3) 25 1,000 unit DAILY 08/09/19 05/26/20 mcg (1,000 unit) capsule (Vitamin D3) lactobacillus combination no.4 3 1 cell DAILY 08/09/19 05/26/20 billion cell capsule (Probiotic) Previous Rx's Medication Instructions Recorded tamoxifen 20 mg tablet 20 mg PO DAILY #90 tab 09/30/20 lisinopril 5 mg tablet 5 mg PO DAILY #90 tab 04/07/21 Allergies Allergy/AdvReac Type Severity Reaction Status Date / Time adhesive tape Allergy Severe Rash Verified 04/07/21 08:13 Penicillins [PENICILLINS] Allergy Severe ANAPHYLAXIS Verified 04/07/21 08:13 amitriptyline [AMITRIPTYLINE] Allergy Intermediate confusion, Verified 04/07/21 08:13 increased heart rate latex [LATEX] Allergy Intermediate Rash Verified 04/07/21 08:13 cyclobenzaprine AdvReac Intermediate Vomiting, Verified 04/07/21 08:13 [CYCLOBENZAPRINE] dizziness, weak oxycodone [OXYCODONE] AdvReac Intermediate vomiting, Verified 04/07/21 08:13 dizziness Review of Systems <Isaias Vegas PA-C - Last Filed: 06/04/21 13:26> Review of Systems Narrative: As per HPI Patient History <Isaias Vegas PA-C - Last Filed: 06/04/21 13:26> Medical History (Updated 06/04/21 @ 12:56 by Isaias Vegas PA-C) Actinic keratosis Hypertension Surgical History Status post breast biopsy Family History Brother Age: 66 Hypertension Migraines Cancer Brother Age: 62 Asthma Depression Father Hypertension Transient global amnesia Mother Age: 91 Gout Cataracts, both eyes Social History Smoking Status: Never smoker alcohol intake: current substance use type: does not use Smoking Status: Never smoker alcohol intake frequency: 0-2 drinks per day Substance Use Type: does not use Exam <Isaias Vegas PA-C - Last Filed: 06/04/21 13:26> Narrative Exam Narrative: Exam Narrative: Const General: cooperative, healthy appearing, comfortable, no acute distress, well developed and well groomed Nutritional Appearance: average body habitus Orientation: alert and oriented x3 HENGA Head: normal to inspection and atraumatic Ears: hearing grossly normal bilaterally Nose: external nose normal and nares normal Face and sinus: normal facial exam Neck Neck: normal visual inspection and supple Resp Effort & Inspection: normal respiratory effort, able to speak in complete sentences, no audible wheezes, not labored, no nasal flaring and no respiratory distress Neuro General: alert, oriented x3, gait normal, tone normal and moves all extremities Cognition: normal cognition Speech: speech normal Gait: Limping gait Extremities Lower extremities exposed. Grossly normal in appearance with no obvious swelling, ecchymosis or erythema. No pedal edema noted. No significant soft tissue or bony tenderness. Calf pain is reproduced with plantar flexion against resistance on the right side. Psych Appearance: grossly normal and well kempt Mental Status: mental status grossly normal Speech and Movement: speech and movement normal Mood: congruent mood Affect: normal affect Initial Vital Signs Initial Vital Signs: Vital Signs Temperature 98.7 F 06/04/21 12:04 Pulse Rate 77 06/04/21 12:04 Respiratory Rate 18 06/04/21 12:04 Blood Pressure 139/87 06/04/21 12:04 Pulse Oximetry 97 06/04/21 12:04 <Darrel Garcia DO - Last Filed: 06/04/21 14:03> Initial Vital Signs Initial Vital Signs: Vital Signs Temperature 98.7 F 06/04/21 12:04 Pulse Rate 77 06/04/21 12:04 Respiratory Rate 18 06/04/21 12:04 Blood Pressure 139/87 06/04/21 12:04 Pulse Oximetry 97 06/04/21 12:04 Scores <Isaias Vegas PA-C - Last Filed: 06/04/21 13:26> Pro' Criteria for DVT Active Cancer (Treatment within 6 months): No Bedridden recently >3 days or major surgery within 4 weeks: No Calf Swelling >3cm compared to other leg: No Collateral (nonvericose) superficial veins present: No Entire leg swollen: No Localized tenderness along the deep vein system: Yes Pitting edema, confined to symtomatic leg: No Paralysis, paresis, or recent plaster immobilization of ext: No Previously documented DVT: No Alternative dx to DVT as likely or more likely: Yes Wells' criteria for DVT: -1 <DO Presley Ponce Last Filed: 06/04/21 14:03> Usman Criteria for DVT Wells' criteria for DVT: -1 Course <Isaias Vegas PA-C - Last Filed: 06/04/21 13:26> Vital Signs Vital signs: Vital Signs - 8 hr 06/04/21 12:04 Temperature 98.7 F Pulse Rate 77 Respiratory Rate 18 Blood Pressure 139/87 Pulse Oximetry 97 <DO Presley Ponce Last Filed: 06/04/21 14:03> Vital Signs Vital signs: Vital Signs - 8 hr 06/04/21 12:04 Temperature 98.7 F Pulse Rate 77 Respiratory Rate 18 Blood Pressure 139/87 Pulse Oximetry 97 [facility] - Extremity Injury (Lower) <Isaias Vegas PA-C - Last Filed: 06/04/21 13:26> [facility] Narrative Medical decision making narrative: DVT, Achilles rupture, cellulitis were cons idered. DVT seems unlikely at this time. She was put into the Wells criteria and scored -1 suggesting that this diagnosis is unlikely. I also think that this is unlikely. There are no significant overlying skin abnormalities at this time. Her Achilles is intact and nontender. She is able to plantar flex with only minimal discomfort passively and actively. Pain is reproduced with plantar flexion against resistance suggesting a possible partial tear or strain. Recommend treating this as a strain/sprain at this time with strict return precautions if symptoms fail to improve. Patient verbalizes understanding and agrees to plan and has no further concerns at this time. Thank you A [id number] system was used with the dictation of this note. Please disregard any spelling or grammatical errors. Discharge Plan Departure Patient Disposition: Home Clinical Impression: Strain of right calf muscle Activity Restrictions/Additional Instructions: It was very nice to meet you this afternoon. Please do the stretching activities that we discussed as well as the range of motion activities. Rolling the muscle out with a foam roller can also be helpful. Using acetaminophen or ibuprofen as needed for pain management. I expect your symptoms to improve over the next few days and do not expect them to get worse from this point on. If you experience worsening swelling, worsening pain, cough, chest pain, rash or have any other acute concerns or complaints please return to the ER for re- evaluation. Also, if your symptoms have not improved in the next week please follow-up with your primary care provider for follow-up. Thank you Isaias Vegas PA-C Prescriptions: No Action Fish Oil 500 mg PO QDAY Qty: 0 RF: 0 tretinoin [Retin-A] 0.05 % cream 1 killian Topical PRN PRN (Reason: Rash) Qty: 0 RF: 0 lisinopril 5 mg tablet 5 mg PO DAILY Qty: 90 RF: 1 calcium carbonate [Calcium 500] 500 mg calcium (1,250 mg) Tablet 500 mg DAILY RF: 0 cholecalciferol (vitamin D3) [Vitamin D3] 1,000 unit Capsule 1,000 unit DAILY RF: 0 Probiotic 3 billion cell Capsule 1 cell DAILY RF: 0 tamoxifen 20 mg Tablet 20 mg PO DAILY Qty: 90 RF: 3 Referrals: Rupinder Chavez DO [Primary Care Provider] - <Darrel Garcia DO - Last Filed: 06/04/21 14:03> Cosign ED Attending Cosignature Attestation: Dr Garcia Co-Sign Statement: I was available for consultation during this patient's emergency department visit. This chart is signed by myself for administrative purposes only. I did not have direct contact with this patient during this visit. They were seen independently by the APC.
== END 2021-06-04 13:12 | disposition home or self-care (01) ==
PROVIDERS: Emergency Provider Physician Assistant; PCP Family Medicine
DX: S86.911A Strain of unspecified muscle(s) and tendon(s) at lower leg level, right leg, initial encounter (principal); Y93.69 Activity, other involving other sports and athletics played as a team or group
CPT/HCPCS: 99281

== ENCOUNTER → 2021-06-19 17:32 | Outpatient (CLI) | payer MEDICARE, OTHER, SELFPAY ==
--- NOTE | 2021-06-19 | DI.MRI.S_ITS ---
PROCEDURE: MR LOWER LEG RT WO CON INDICATIONS: Strain of other muscle(s) and tendon(s) at lower l TECHNIQUE: Noncontrast coronal and sagittal T1 spin echo and STIR; axial T1 spin echo and T2 fast spin echo with fat saturation through the tibia/fibula. COMPARISON: None. FINDINGS: Image quality: Excellent. Bones: The visualized bone marrow demonstrates normal signal on all sequences. The overlying cortex appears intact. No fractures lines or intra-osseous lesions. Soft tissues: There is diffuse increased T2 hyperintensity/edema involving the posterior tibialis, flexor hallucis longus, proximal medial gastrocnemius, soleus and the anterior tibialis muscles in keeping with acute strain/myositis. Possible mildly T1 isointense hematoma measuring 1.4 x 1.6 cm on image 44/8. Technically this is indeterminate and could represent dilated vessels. Superficial fascial edema/fluid also noted posteriorly at the upper calf. There is edema adjacent to the lateral patellofemoral ligament which is otherwise grossly intact. Small West's cyst. Circumferential subcutaneous edema at the hindfoot. IMPRESSION: Acute strain/partial rupture involving the medial gastrocnemius, posterior tibialis, flexor hallucis longus, anterior tibialis and soleus muscles as detailed above. Subcutaneous edema and superficial fascial fluid as above. Dictated by: Magan Parks M.D. on 06/23/2021 at 9:31 Approved by: Magan Parks M.D. on 06/23/2021 at 9:42
== END ==
PROVIDERS: PCP Family Medicine
DX: S86.811A Strain of other muscle(s) and tendon(s) at lower leg level, right leg, initial encounter (principal); X58.XXXA Exposure to other specified factors, initial encounter
CPT/HCPCS: 73718

== ENCOUNTER → 2022-02-24 10:21 | Outpatient (CLI) | payer MEDICARE, OTHER, SELFPAY ==
--- NOTE | 2022-02-24 | DI.MG.S_ITS ---
BILATERAL DIGITAL SCREENING MAMMOGRAM 3D/2D WITH CAD: 02/24/2022 CLINICAL: Routine screening. Routine screening. Personal history of left breast cancer. Comparison is made to exams dated: 02/23/2021 mammogram - [facility], 02/21/2020 mammogram - [facility], 02/05/2019 mammogram, and 07/26/2018 mammogram - [facility]. The tissue of both breasts is heterogeneously dense. This may lower the sensitivity of mammography. Current study was also evaluated with a Computer Aided Detection (CAD) system. There are benign post operative findings in the left breast. No significant masses, calcifications, or other findings are seen in either breast. There has been no significant interval change. IMPRESSION: BENIGN There is no mammographic evidence of malignancy. A 1 year screening mammogram is recommended. This exam was interpreted at Station ID: [id number]. NOTE: For mammograms, a report in lay terms will be sent to the patient. Approximately 15% of breast malignancies will not be visualized mammographically. In the management of a palpable breast mass, a negative mammogram must not discourage biopsy of a clinically suspicious lesion. Electronically Signed By: London Smith acr/penrad:02/25/2022 13:49:45 copy to: YEE ALONZO letter sent: Normal Exam ACR BI-RADS Category 2: Benign Finding(s) 3342F
== END ==
PROVIDERS: Family Provider Family Medicine; PCP Family Medicine; Referring Provider Family Medicine; Visit Provider Family Medicine
DX: Z12.31 Encounter for screening mammogram for malignant neoplasm of breast (principal); Z85.3 Personal history of malignant neoplasm of breast
CPT/HCPCS: 77063; 77067

== ENCOUNTER 2022-06-21 11:52 | Emergency (ER) | payer MEDICARE, OTHER, SELFPAY ==
[2022-06-21 12:24] VITALS: BP 184/100; PULSE 91; RESP 16; TEMP 36.9; O2SAT 99; BMI 22.1
[2022-06-21] MEDS: diphenhydrAMINE 25 MG TABLET 50 MG PO (12:45)
[2022-06-21 12:52] VITALS: BP 165/91
--- NOTE | 2022-06-21 13:54 | ED_ITS ---
HPI - Recheck/Abnormal Lab/Rx General Chief Complaint: Recheck/Abnormal Lab/Rx Stated Complaint: Sent by [facility] lt side of face swollen & Numb Time Seen by Provider: 06/21/22 12:35 History of Present Illness HPI narrative: Yoli Billings is a 67-year-old woman comes to the ER today with left upper lip swelling. She woke up with it this morning and it was reminiscent to her of a time some years ago when she had dramatic tongue swelling. She said that was self-limited and she did not seek any medical care at that time. She takes lisinopril but no other medications. She is not had any new foods or environmental exposures of which she is aware. The lip swelling has been present since this morning and it also feels very numb as if she had an anesthesia injection in her lip at the dentist office. She denies any other symptoms of illness. No shortness of breath, no cough no sore throat, no headache no fever no GI symptoms. No skin rash. Related Data Home Medications Medication Instructions Recorded Confirmed Fish Oil 500 mg PO QDAY ##0 05/16/13 05/10/22 tretinoin 0.05 % topical cream 1 killian topical PRN PRN Rash ##0 09/29/16 05/10/22 (Retin-A) calcium carbonate 500 mg calcium 500 mg DAILY 08/09/19 05/10/22 (1,250 mg) tablet (Calcium 500) cholecalciferol (vitamin D3) 25 1,000 unit DAILY 08/09/19 05/10/22 mcg (1,000 unit) capsule (Vitamin D3) niacinamide 50 mg tablet 50 mg PO BID 09/30/21 05/10/22 aspirin 81 mg tablet 81 mg PO DAILY 03/31/22 05/10/22 Previous Rx's Medication Instructions Recorded tamoxifen 20 mg tablet 20 mg PO DAILY #90 tabs 10/08/21 lisinopril 5 mg tablet 5 mg PO DAILY #90 tabs 06/18/22 Allergies Allergy/AdvReac Type Severity Reaction Status Date / Time adhesive tape Allergy Severe Rash Verified 05/10/22 14:10 Penicillins [PENICILLINS] Allergy Severe ANAPHYLAXIS Verified 05/10/22 14:10 amitriptyline [AMITRIPTYLINE] Allergy Intermediate confusion, Verified 05/10/22 14:10 increased heart rate latex [LATEX] Allergy Intermediate Rash Verified 05/10/22 14:10 cyclobenzaprine AdvReac Intermediate Vomiting, Verified 05/10/22 14:10 [CYCLOBENZAPRINE] dizziness, weak oxycodone [OXYCODONE] AdvReac Intermediate vomiting, Verified 05/10/22 14:10 dizziness Review of Systems Review of Systems Narrative: Complete review of systems is negative other than as noted above. Patient History Medical History (Updated 06/21/22 @ 14:05 by Edgard Chopra MD) Actinic keratosis Hypertension Osteoporosis Surgical History Status post breast biopsy Family History Brother Age: 67 Hypertension Migraines Cancer Brother Age: 63 Asthma Depression Father Hypertension Transient global amnesia Mother Age: 92 Gout Cataracts, both eyes Social History Smoking Status: Never smoker alcohol intake: current substance use type: does not use Smoking Status: Never smoker alcohol intake frequency: 0-2 drinks per day Substance Use Type: does not use Exam Narrative Exam Narrative: GENERAL: Alert, cooperative and in no distress. HEAD: Atraumatic. Normocephalic. EYES: Sclera are clear without icterus. Extraocular movements are full. ENT: No rhinorrhea. Oropharynx is moist. Mouth exam is benign. She does have swelling of the upper lip on the left side only. There is no tongue swelling of any kind. Her posterior pharynx is widely patent. NECK: Supple. Full range of motion. No adenopathy. CARDIOVASCULAR: Normal rate and rhythm without murmur gallop or rub. RESPIRATORY: Clear to auscultation. Breath sounds equal bilaterally. No wheezes, rales, or rhonchi. GASTROINTESTINAL: Abdomen soft, non-tender, nondistended. EXTREMITIES: No edema, full range of motion. No obvious trauma. BACK: Normal inspection, no CVA tenderness. NEURO: Nonfocal examination, normal speech, normal gait. SKIN: No rash or erythema of visible areas PSYCH: Normally oriented. Normal range of affect. Appropriate behavior Initial Vital Signs Initial Vital Signs: Vital Signs Temperature 98.4 F 06/21/22 12:24 Pulse Rate 91 H 09/05/22 12:24 Respiratory Rate 16 06/21/22 12:24 Blood Pressure 184/100 H 06/21/22 12:24 Pulse Oximetry 99 06/21/22 12:24 Oxygen Delivery Method 06/21/22 12:24 Course Course Course Narrative: I gave her 50 mg of oral Benadryl and checked her in an hour. The swelling seems slightly better to me. The patient reports that it is no worse. Her says that it is quite a bit better than it was this morning. Orders Ordered: Discontinued Medications Diphenhydramine HCl (Diphenhydramine 25 Mg Tablet) 50 mg PO NOW ONE Stop: 06/21/22 12:39 Last Admin: 06/21/22 12:45 Dose: 50 mg Documented By: KT Vital Signs Vital signs: Vital Signs - 8 hr 06/21/22 12:24 06/21/22 12:52 Temperature 98.4 F Pulse Rate 91 H Respiratory Rate 16 Blood Pressure 184/100 H 165/91 H Pulse Oximetry 99 Oxygen Delivery Method Room Air MDM - Recheck/Abnormal Lab/Rx MDM Narrative Medical decision making narrative: My suspicion here is angioedema from DAMIAN inhibitor. I encouraged the patient to discontinue her lisinopril and throat in the garbage. I recommend follow-up with her primary care doctor for ongoing blood pressure management. I reassured the patient that she need not worry about her blood pressure over the coming few days but that simply recording her blood pressure daily and reporting it to primary care will be sufficient as far as blood pressure management goes. Far greater risk would be to continue lisinopril for now. I told her that she should never take lisinopril in the future unless it is done in the setting of an allergy clinic under direct supervision. 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 Do not take this medication again. Angioedema can be life-threatening by causing so much swelling that the airway is obstructed. You should never take this medication again unless under the direct supervision of an loss mitigation specialist. Call your doctor tomorrow to discuss ongoing hypertension management. If the swelling seems to be getting a little bit worse, you can take Benadryl as frequently as every 6 hours. If the tongue begins to swell at all or if you have any sense that your airway is swelling, you should call 911 or return to the emergency department immediately. Prescriptions: No Action Fish Oil 500 mg PO QDAY Qty: 0 tretinoin [Retin-A] 0.05 % cream 1 killian Topical PRN PRN (Reason: Rash) Qty: 0 lisinopril 5 mg tablet 5 mg PO DAILY Qty: 90 1RF calcium carbonate [Calcium 500] 500 mg calcium (1,250 mg) Tablet 500 mg DAILY cholecalciferol (vitamin D3) [Vitamin D3] 1,000 unit Capsule 1,000 unit DAILY niacinamide 50 mg Tablet 50 mg PO BID tamoxifen 20 mg Tablet 20 mg PO DAILY Qty: 90 3RF aspirin 81 mg Tablet 81 mg PO DAILY Referrals: Rashi Franco MD [Primary Care Provider] -
[2022-06-21 14:18] VITALS: BP 137/87; PULSE 67; RESP 14; O2SAT 99
== END 2022-06-21 14:19 | disposition home or self-care (01) ==
PROVIDERS: Emergency Provider Family Medicine Addiction Medicine; Family Provider Family Medicine; PCP Pediatrics
DX: T78.3XXA Angioneurotic edema, initial encounter (principal)
CPT/HCPCS: 99283

== ENCOUNTER → 2022-06-23 14:31 | Outpatient (CLI) | payer MEDICARE, OTHER, SELFPAY | PROVIDERS: Family Provider Family Medicine; PCP Pediatrics; Referring Provider Pediatrics; Visit Provider Pediatrics | DX: Z78.0 Asymptomatic menopausal state (principal); M81.0 Age-related osteoporosis without current pathological fracture; Z13.820 Encounter for screening for osteoporosis; M85.89 Other specified disorders of bone density and structure, multiple sites | CPT/HCPCS: 36415; 77080; 82306 ==

== ENCOUNTER → 2023-02-25 12:52 | Outpatient (CLI) | payer MEDICARE, OTHER, SELFPAY ==
--- NOTE | 2023-02-25 | DI.MG.S_ITS ---
BILATERAL DIGITAL SCREENING MAMMOGRAM 3D/2D WITH CAD: 02/25/2023 CLINICAL: Routine screening. Personal history of left breast cancer. Comparison is made to exams dated: 02/24/2022 mammogram, 02/23/2021 mammogram - [facility], and 02/21/2020 mammogram - [facility]. Both breasts are heterogeneously dense, which may obscure small masses (category c / 51-75% glandular tissue). Current study was also evaluated with a Computer Aided Detection (CAD) system. There are benign post operative findings in the left breast. No significant masses, calcifications, or other findings are seen in either breast. There has been no significant interval change. IMPRESSION: BENIGN There is no mammographic evidence of malignancy. A 1 year screening mammogram is recommended. This exam was interpreted at Station ID: [id number]. NOTE: For mammograms, a report in lay terms will be sent to the patient. Approximately 15% of breast malignancies will not be visualized mammographically. In the management of a palpable breast mass, a negative mammogram must not discourage biopsy of a clinically suspicious lesion. Electronically Signed By: Paula livingston/sander:02/25/2023 15:30:28 copy to: YEE ALONZO letter sent: Normal Exam ACR BI-RADS Category 2: Benign Finding(s) 3342F
== END ==
PROVIDERS: Family Provider Family Medicine; PCP Family Medicine; Referring Provider Family Medicine; Visit Provider Family Medicine
DX: Z12.31 Encounter for screening mammogram for malignant neoplasm of breast (principal); Z85.3 Personal history of malignant neoplasm of breast
CPT/HCPCS: 77063; 77067

== ENCOUNTER → 2024-02-27 | Outpatient (CLI) | payer MEDICARE, OTHER, SELFPAY ==
--- NOTE | 2024-02-27 11:02 | DI.MG.S_ITS ---
BILATERAL DIGITAL SCREENING MAMMOGRAM 3D/2D WITH CAD: 02/27/2024 CLINICAL: Routine screening. Personal history of left breast cancer. Comparison is made to exams dated: 02/25/2023 mammogram, 02/24/2022 mammogram, 02/23/2021 mammogram - [facility], and 02/21/2020 mammogram - [facility]. Both breasts are heterogeneously dense, which may obscure small masses (category c / 51-75% glandular tissue). Current study was also evaluated with a Computer Aided Detection (CAD) system. There are benign post operative findings in the left breast. No significant masses, calcifications, or other findings are seen in either breast. There has been no significant interval change. IMPRESSION: BENIGN There is no mammographic evidence of malignancy. A 1 year screening mammogram is recommended. This exam was interpreted at Station ID: [id number]. NOTE: For mammograms, a report in lay terms will be sent to the patient. Approximately 15% of breast malignancies will not be visualized mammographically. In the management of a palpable breast mass, a negative mammogram must not discourage biopsy of a clinically suspicious lesion. Electronically Signed By: Erik angulo/sander:03/05/2024 13:00:02 copy to: YEE ALONZO letter sent: Normal Exam ACR BI-RADS Category 2: Benign Finding(s) 3342F
== END ==
LOC: MAMMO 11:02
PROVIDERS: Family Provider Family Medicine; PCP Student in an Organized Health Care Education/Training Program; Referring Provider Internal Medicine Hematology & Oncology; Visit Provider Internal Medicine Hematology & Oncology
DX: Z12.31 Encounter for screening mammogram for malignant neoplasm of breast (principal); Z85.3 Personal history of malignant neoplasm of breast; R92.333 Mammographic heterogeneous density, bilateral breasts
CPT/HCPCS: 77063; 77067

== ENCOUNTER 2024-03-13 00:18 | Emergency (ER) | payer MEDICARE, OTHER, SELFPAY ==
[2024-03-13] VITALS (13 sets, daily range): BP systolic 134–197; BP diastolic 78–109; PULSE 72–90; RESP 17–20; TEMP 36.6; O2SAT 93–100; BMI 21.9
--- NOTE | 2024-03-13 00:26 | DI.CT.S_ITS ---
PROCEDURE: CT HEAD/BRAIN WO CON INDICATIONS: severe R posterior headache x 5hrs TECHNIQUE: Noncontrast 4.5 mm thick angled axial sections acquired from the foramen magnum to the vertex, with coronal and sagittal reformats. For radiation dose reduction, the following was used: automated exposure control, adjustment of mA and/or kV according to patient size. COMPARISON: [facility], CT, HEAD WITHOUT CONTRAST, 12/31/2015, 8:42. FINDINGS: Image quality: Diagnostic. CSF spaces: Basal cisterns are patent. No extra-axial fluid collections. Ventricles are normal in size and shape. Brain: No midline shift. No intracranial masses or hemorrhage. Lanier-white matter interface is normal. Skull and face: Calvarium and visualized facial bones are intact, without suspicious lesions. Sinuses: Visualized sinuses and mastoids are clear. IMPRESSION: Normal for age, source of headache is not found. Dictated by: Larry Espinoza M.D. on 03/13/2024 at 1:19 Approved by: Larry Espinoza M.D. on 03/13/2024 at 1:20
[2024-03-13] MEDS: LIDOCAINE 5% PATCH 1 EACH TOP (00:40)
--- NOTE | 2024-03-13 00:42 | ED_ITS ---
HPI - Headache General Chief Complaint: Headache Stated Complaint: severe pain in back of head Time Seen by Provider: 03/13/24 00:19 Mode of arrival: Ambulatory History of Present Illness HPI Narrative: 69-year-old female presents for right-sided posterior headache. Patient states that she felt pain in the back of her head approximately 4 days ago, but at approximately 7:30pm this evening her pain suddenly and rapidly increased in severity. Patient states that she was sitting watching TV when this happened. Patient took her 's prescribed oxycodone, which did not significantly improve her pain. They decided to present for evaluation. Patient denies light sensitivity, numbness, weakness, tingling. She states that she has had an ocular migraine in the past but this is somewhat different. Reports difficulty in turning her head to the right due to her posterior head pain Related Data Home Medications Medication Instructions Recorded Confirmed Fish Oil 500 mg PO QDAY ##0 05/16/13 09/06/23 tretinoin 0.05 % topical cream 1 killian topical PRN PRN Rash ##0 09/29/16 09/06/23 (Retin-A) calcium carbonate 500 mg calcium 500 mg DAILY 08/09/19 09/06/23 (1,250 mg) tablet (Calcium 500) cholecalciferol (vitamin D3) 25 1,000 unit DAILY 08/09/19 09/06/23 mcg (1,000 unit) capsule (Vitamin D3) niacinamide 50 mg tablet 50 mg PO BID 09/30/21 09/06/23 Previous Rx's Medication Instructions Recorded losartan 25 mg tablet 25 mg PO DAILY #90 tabs 09/06/23 hydroxyzine HCl 25 mg tablet 25 mg PO BEDTIME #90 tabs 10/04/23 alendronate 70 mg tablet (Fosamax) 70 mg PO QWEEK osteoporosis #12 02/14/24 tabs methocarbamol 500 mg tablet 500 mg PO TID #30 tabs 03/13/24 Allergies Allergy/AdvReac Type Severity Reaction Status Date / Time adhesive tape Allergy Severe Rash Verified 09/06/23 12:03 lisinopril Allergy Severe Angioedema Verified 09/06/23 12:03 Penicillins [PENICILLINS] Allergy Severe ANAPHYLAXIS Verified 09/06/23 12:03 amitriptyline [AMITRIPTYLINE] Allergy Intermediate confusion, Verified 11/21/23 12:03 increased heart rate latex [LATEX] Allergy Intermediate Rash Verified 09/06/23 12:03 cyclobenzaprine AdvReac Intermediate Vomiting, Verified 09/06/23 12:03 [CYCLOBENZAPRINE] dizziness, weak Review of Systems Review of Systems Narrative: See HPI Patient History Medical History Osteoporosis Hypertension Actinic keratosis Surgical History Status post breast biopsy Family History Brother Age: 68 Hypertension Migraines Cancer Brother Age: 64 Asthma Depression Father Hypertension Transient global amnesia Mother Age: 93 Gout Cataracts, both eyes Social History Smoking Status: Never smoker alcohol intake: current substance use type: does not use Smoking Status: Never smoker alcohol intake frequency: 0-2 drinks per day Alcohol type: wine Substance Use Type: does not use Exam Initial Vital Signs Initial Vital Signs: Vital Signs Pulse Oximetry 97 03/13/24 00:23 Const: Awake, alert,uncomfortable, in pain Neck: point tenderness R neck paraspinal muscle and R occipital pain, full ROM Cardiac: regular rate, regular rhythm RESP: unlabored, clear bilaterally, no wheezing Skin: Warm, Dry, intact, no rashes Neuro: AO x3, CN II-XII grossly intact, moves all extremities Procedures Nerve Block Nerve Block 1: Local Anesthetic: lidocaine 2% and with epi Amount of anesthesia used (mL): 5 Side: right Nerve Blocks: occipital Procedure Successful: Yes Patient Tolerated Procedure: Well and No complications Complications: none Course Orders Ordered: Discontinued Medications Sodium Chloride (Normal Saline 0.9%) 1,000 mls @ 1,000 mls/hr IV BOLUS ONE Stop: 03/13/24 01:26 Last Infusion: 03/13/24 01:41 Dose: Infused Documented By: Admin: 03/13/24 00:52 Dose: 1,000 mls/hr Documented By: REKHA Ketorolac Tromethamine (Ketorolac 30 Mg/Ml Vial) 15 mg IV NOW ONE Stop: 03/13/24 01:25 Last Admin: 03/13/24 01:34 Dose: 15 mg Documented By: REKHA Lidocaine (Lidocaine 5% Patch) 1 each TOP NOW ONE Stop: 03/13/24 00:27 Last Admin: 03/13/24 00:40 Dose: 1 each Documented By: REKHA Lidocaine/Epinephrine (Lidocaine 2% W/Epi Inj 10 Ml Vial) 20 ml INJ INTRA-OP ONE Stop: 03/13/24 02:13 Last Admin: 03/13/24 02:48 Dose: 8 ml Documented By: REKHA Morphine Sulfate (Morphine 4 Mg/Ml Inj) 4 mg IV NOW ONE Stop: 03/13/24 00:28 Last Admin: 03/13/24 00:51 Dose: 4 mg Documented By: REKHA Vital Signs Vital signs: Vital Signs - 8 hr 03/13/24 00:23 03/13/24 00:24 03/13/24 00:24 Temperature Pulse Rate 84 Respiratory Rate Blood Pressure 197/109 H Pulse Oximetry 97 97 Oxygen Delivery Method Room Air 03/13/24 00:27 03/13/24 00:30 03/13/24 00:30 Temperature 97.8 F Pulse Rate 84 79 Respiratory Rate 20 18 Blood Pressure 197/109 H 167/89 H Pulse Oximetry 98 97 Oxygen Delivery Method Room Air Room Air 03/13/24 01:00 03/13/24 01:01 03/13/24 01:01 Temperature Pulse Rate 72 80 Respiratory Rate 17 Blood Pressure 141/81 H Pulse Oximetry 96 97 Oxygen Delivery Method Room Air Room Air 03/13/24 01:30 03/13/24 01:30 03/13/24 02:00 Temperature Pulse Rate 80 90 Respiratory Rate 19 20 Blood Pressure 154/87 H Pulse Oximetry 100 98 Oxygen Delivery Method Room Air Room Air 03/13/24 02:00 Temperature Pulse Rate Respiratory Rate Blood Pressure 155/83 H Pulse Oximetry Oxygen Delivery Method MDM - Headache Differential Diagnosis Differential diagnosis: Likely migraine, tension headache and subarachnoid hemorrhage Imaging Data CT scan - head: Radiologist's Impression: PROCEDURE: CT HEAD/BRAIN WO CON INDICATIONS: severe R posterior headache x 5hrs TECHNIQUE: Noncontrast 4.5 mm thick angled axial sections acquired from the foramen magnum to the vertex, with coronal and sagittal reformats. For radiation dose reduction, the following was used: automated exposure control, adjustment of mA and/or kV according to patient size. COMPARISON: [facility], CT, HEAD WITHOUT CONTRAST, 12/31/2015, 8:42. FINDINGS: Image quality: Diagnostic. CSF spaces: Basal cisterns are patent. No extra-axial fluid collections. Ventricles are normal in size and shape. Brain: No midline shift. No intracranial masses or hemorrhage. [place]-white matter interface is normal. Skull and face: Calvarium and visualized facial bones are intact, without suspicious lesions. Sinuses: Visualized sinuses and mastoids are clear. IMPRESSION: Normal for age, source of headache is not found. Dictated by: Larry Espinoza M.D. on 03/13/2024 at 1:19 Approved by: Larry Espinoza M.D. on 03/13/2024 at 1:20 CTA - brain/neck: Radiologist's Impression: PROCEDURE: CT ANGIO HEAD AND NECK INDICATIONS: INTRACTABLE HEADACHE TECHNIQUE: After the administration of intravenous contrast, 1 mm thick sections acquired from the aortic arch through the [place] of [place]. 3-dimensional ldllosl-xjlztikbd-nfzprmkxab (MIP) and/or volume rendering reformats were acquired of the central intracranial vasculature and neck separately. For radiation dose reduction, the following was used: automated exposure control, adjustment of mA and/or kV according to patient size. COMPARISON: [facility], CT, CT HEAD/BRAIN WO CON, 03/13/2024, 0:33. FINDINGS: Image quality: Diagnostic. BRAIN: Please refer to same day CT of the head. HEAD CT ANGIOGRAPHY: Anterior circulation: Intracranial internal carotid arteries are normal in size and flow. The flow within the paired anterior cerebral arteries is normal and symmetric. The flow within the middle cerebral arteries is normal and symmetric. The anterior communicating artery is seen. No aneurysms are seen. Posterior circulation: Visualized portions of the vertebral arteries demonstrate normal caliber, and join to form a normal appearing basilar artery. Flow within the posterior cerebral arteries is normal and symmetric. No aneurysms are seen. NECK CT ANGIOGRAPHY: Carotid system: The great vessels demonstrate a conventional anatomy as they arise from the aortic arch. The origins of the common carotid arteries appear patent. The common carotid arteries demonstrate normal caliber and courses. The bifurcation regions are both widely patent. The internal carotid arteries demonstrate normal calibers and courses. Posterior circulation: The origins of the vertebral arteries both appear widely patent. The more superior extracranial portions of both vertebral arteries also demonstrate normal courses and calibers. They join to form a normal appearing basilar artery. Soft tissues: Visualized neck soft tissues demonstrate no suspicious abnormalities. Bones: No suspicious bony lesions. Degenerative changes of the spine. Visualized cervical spine appears normally aligned. IMPRESSION: No significant intracranial arterial abnormality is seen. No significant abnormality is seen within the arteries of the neck. Findings are concordant with preliminary interpretation provided by [facility]. Any quantitative measurements of stenosis were performed using NASCET criteria. Dictated by: Amilcar Feliciano M.D. on 03/13/2024 at 8:05 Approved by: Amilcar Feliciano M.D. on 03/13/2024 at 8:11 [facility] Narrative Medical decision making narrative: Uncomfortable but nontoxic patient presenting for 4 days of headache with sudden worsening approximately 4 hours prior to arrival. Patient's pain seems to be focus on the right posterior head particularly at the paraspinal muscles and occipital scalp. She was very tender to palpation in this region. Neurologically intact, no focal neurologic deficit. Based on the severity of patient's reported pain as well as age a CT scan will be ordered and we will order medications for pain. CT brain negative for acute findings. No obvious bleed or mass present. Patient received very little benefit with morphine and additional pain medications ordered. Since she was still complaining of pain despite morphine a CT angio of the head and neck will be ordered to ensure that there was no other acute process ongoing. Offered patient occipital nerve block for pain control, which patient accepted. CT angio negative for acute findings. Patient reported moderate relief of pain with occipital nerve block. Imaging findings counseled with the patient at bedside, I recommended ongoing ibuprofen and Tylenol for headache relief. In general I recommend against opiates in headache as it may cause rebound with prolonged use. Trial of muscle relaxers sent to pharmacy of choice. PCP follow up advised. Discharge Plan Departure Patient Disposition: Home Clinical Impression: Headache Instructions: DI for Headache Activity Restrictions/Additional Instructions: The CT of your brain as well as the CT of the blood vessels in your head and neck were normal today. There do not appear to be any bleeds, aneurysms, masses, or other obvious causes of your headache. There may be a tension component to your headache since you received relief from the injection received today. Take 400 mg of ibuprofen and up to 1000 mg of Tylenol every 6 hours as needed for pain. Make sure to take no more than 4000 mg of Tylenol daily. You may apply heat and ice to the back of your neck as needed for comfort. A short course of muscle relaxers has been sent to your pharmacy. Do not take this medication with alcohol or before operating heavy machinery as this medication may cause drowsiness. Prescriptions: New methocarbamol 500 mg tablet 500 mg PO TID Qty: 30 0RF No Action losartan 25 mg tablet 25 mg PO DAILY Qty: 90 3RF Fish Oil 500 mg PO QDAY Qty: 0 tretinoin [Retin-A] 0.05 % cream 1 killian Topical PRN PRN (Reason: Rash) Qty: 0 hydroxyzine HCl 25 mg tablet 25 mg PO BEDTIME Qty: 90 3RF alendronate [Fosamax] 70 mg tablet 70 mg PO QWEEK Qty: 12 2RF Rx Instructions: take on one day (same day) each week in morning only. don't lie down flat for minimum 30 minutes after taking med. calcium carbonate [Calcium 500] 500 mg calcium (1,250 mg) Tablet 500 mg DAILY cholecalciferol (vitamin D3) [Vitamin D3] 1,000 unit Capsule 1,000 unit DAILY niacinamide 50 mg Tablet 50 mg PO BID Referrals: Radha Gray MD [Primary Care Provider] - Stand Alone Forms: Patient Portal/API
[2024-03-13] MEDS: MORPHINE 4 MG/ML INJ IV (00:51)
[2024-03-13] MEDS: SODIUM CHLORIDE 0.9% 1,000 ML 1000 ML IV (00:52)
[2024-03-13] MEDS: KETOROLAC 30 MG/ML VIAL 15 MG IV (01:34)
--- NOTE | 2024-03-13 02:05 | DI.CT.S_ITS ---
PROCEDURE: CT ANGIO HEAD AND NECK INDICATIONS: INTRACTABLE HEADACHE TECHNIQUE: After the administration of intravenous contrast, 1 mm thick sections acquired from the aortic arch through the [place] of [place]. 3-dimensional xeysegg-vdlbhiuwd-pjmxzluxfm (MIP) and/or volume rendering reformats were acquired of the central intracranial vasculature and neck separately. For radiation dose reduction, the following was used: automated exposure control, adjustment of mA and/or kV according to patient size. COMPARISON: [facility], CT, CT HEAD/BRAIN WO CON, 03/13/2024, 0:33. FINDINGS: Image quality: Diagnostic. BRAIN: Please refer to same day CT of the head. HEAD CT ANGIOGRAPHY: Anterior circulation: Intracranial internal carotid arteries are normal in size and flow. The flow within the paired anterior cerebral arteries is normal and symmetric. The flow within the middle cerebral arteries is normal and symmetric. The anterior communicating artery is seen. No aneurysms are seen. Posterior circulation: Visualized portions of the vertebral arteries demonstrate normal caliber, and join to form a normal appearing basilar artery. Flow within the posterior cerebral arteries is normal and symmetric. No aneurysms are seen. NECK CT ANGIOGRAPHY: Carotid system: The great vessels demonstrate a conventional anatomy as they arise from the aortic arch. The origins of the common carotid arteries appear patent. The common carotid arteries demonstrate normal caliber and courses. The bifurcation regions are both widely patent. The internal carotid arteries demonstrate normal calibers and courses. Posterior circulation: The origins of the vertebral arteries both appear widely patent. The more superior extracranial portions of both vertebral arteries also demonstrate normal courses and calibers. They join to form a normal appearing basilar artery. Soft tissues: Visualized neck soft tissues demonstrate no suspicious abnormalities. Bones: No suspicious bony lesions. Degenerative changes of the spine. Visualized cervical spine appears normally aligned. IMPRESSION: No significant intracranial arterial abnormality is seen. No significant abnormality is seen within the arteries of the neck. Findings are concordant with preliminary interpretation provided by [facility]. Any quantitative measurements of stenosis were performed using NASCET criteria. Dictated by: Amilcar Feliciano M.D. on 03/13/2024 at 8:05 Approved by: Amilcar Feliciano M.D. on 03/13/2024 at 8:11
[2024-03-13] MEDS: LIDOCAINE 2% W/EPI INJ 10 ML VIAL 20 ML INJ (02:48)
== END 2024-03-13 04:28 | disposition home or self-care (01) ==
PROVIDERS: Emergency Provider Emergency Medicine; Family Provider Family Medicine; PCP Student in an Organized Health Care Education/Training Program
DX: R51.9 Headache, unspecified (principal)
CPT/HCPCS: 64450; 70450; 70496; 70498; 96374; 96375; 99283; 99284; J1885; J2270; Q9967

== ENCOUNTER 2024-09-07 19:34 | Emergency (ER) | payer MEDICARE, OTHER, SELFPAY ==
[2024-09-07 19:39] VITALS: BP 171/90; PULSE 79; RESP 18; TEMP 36.1; O2SAT 97; O2SAT 99
[2024-09-07 19:42] VITALS: BP 171/90; PULSE 84; O2SAT 99
--- NOTE | 2024-09-07 19:44 | ED.UPPEXIN ---
HPI - Extremity Injury (Upper) General Chief Complaint: Extremity Injury, Upper Stated Complaint: Fell off Ladder, No Thinners, R Shoulder Injury Time Seen by Provider: 09/07/24 19:37 Source: patient Mode of arrival: Ambulatory History of Present Illness HPI narrative: 69-year-old female presents for evaluation of right shoulder injury. Patient was trying to clean the refrigerator when her socks slipped on the ladder and she fell, landing on her right hip and right shoulder. She denies hitting her head, denies loss of consciousness, denies use of blood thinners. She states that she was taken several Tylenol and ice her shoulder at home, which has improved her pain, but her is concerned that she may have broken her shoulder. She states that she was not concerned about her right hip and has been able to ambulate on her right leg. Related Data Home Medications Medication Instructions Recorded Confirmed Fish Oil 500 mg PO QDAY ##0 05/16/13 05/22/24 tretinoin 0.05 % topical cream 1 killian topical PRN PRN Rash ##0 09/29/16 05/22/24 (Retin-A) calcium carbonate (Calcium 500) 500 mg DAILY 08/09/19 05/22/24 cholecalciferol (vitamin D3) 25 1,000 unit DAILY 08/09/19 05/22/24 mcg (1,000 unit) capsule (Vitamin D3) niacinamide 50 mg tablet 50 mg PO BID 09/30/21 05/22/24 Previous Rx's Medication Instructions Recorded losartan 25 mg tablet 25 mg PO DAILY #90 tabs 09/06/23 hydroxyzine HCl 25 mg tablet 25 mg PO BEDTIME #90 tabs 10/04/23 alendronate 70 mg tablet (Fosamax) 70 mg PO QWEEK osteoporosis #12 02/14/24 tabs methocarbamol 500 mg tablet 500 mg PO TID #30 tabs 03/13/24 sumatriptan succinate 100 mg tablet See Rx Instructions PO .COMPLEX #7 04/02/24 tabs Allergies Allergy/AdvReac Type Severity Reaction Status Date / Time adhesive tape Allergy Severe Rash Verified 05/22/24 10:41 lisinopril Allergy Severe Angioedema Verified 05/22/24 10:41 Penicillins [PENICILLINS] Allergy Severe ANAPHYLAXIS Verified 05/22/24 10:41 amitriptyline [AMITRIPTYLINE] Allergy Intermediate confusion, Verified 05/22/24 10:41 increased heart rate latex [LATEX] Allergy Intermediate Rash Verified 05/22/24 10:41 cyclobenzaprine AdvReac Intermediate Vomiting, Verified 05/22/24 10:41 [CYCLOBENZAPRINE] dizziness, weak Patient History Medical History Osteoporosis Hypertension Actinic keratosis Surgical History Status post breast biopsy Family History Brother Age: 69 Hypertension Migraines Cancer Brother Age: 65 Asthma Depression Father Hypertension Transient global amnesia Mother Age: 94 Gout Cataracts, both eyes Social History Smoking Status: Never smoker alcohol intake: current substance use type: does not use Smoking Status: Never smoker alcohol intake frequency: 0-2 drinks per day Alcohol type: wine Substance Use Type: does not use Exam Initial Vital Signs Initial Vital Signs: Vital Signs Temperature 97.0 F L 09/07/24 19:39 Pulse Rate 79 09/07/24 19:39 Respiratory Rate 18 09/07/24 19:39 Blood Pressure 171/90 H 09/07/24 19:39 Pulse Oximetry 99 09/07/24 19:39 Oxygen Delivery Method Room Air 09/07/24 19:39 Const: Awake, alert, no acute distress, nontoxic appearing MSK UE: No deformity, slightly decreased ROM due to pain. 2+ radial pulses, conference and event organiser strength/hand dexterity equal bilaterally Skin: Warm, Dry, intact, no rashes Neuro: AO x3, CN II-XII grossly intact, moves all extremities Course Orders Ordered: ED Orders 09/07/24 19:44 XR shoulder RT min 2V Stat Vital Signs Vital signs: Vital Signs - 8 hr 09/07/24 19:39 09/07/24 19:39 09/07/24 19:42 Temperature 97.0 F L Pulse Rate 79 Respiratory Rate 18 Blood Pressure 171/90 H 171/90 H Pulse Oximetry 99 97 Oxygen Delivery Method Room Air 09/07/24 19:42 09/07/24 20:00 09/07/24 20:00 Temperature Pulse Rate 84 72 Respiratory Rate 18 Blood Pressure 138/75 Pulse Oximetry 99 97 Oxygen Delivery Method Room Air MDM - Extremity Injury (Upper) Imaging Data Extremity x-ray #1: Radiologist's Impression: PROCEDURE: XR SHOULDER RT MIN 2V INDICATIONS: FALL 2 FT, L SHOULDER INJURY/PAIN TECHNIQUE: 3 views of the shoulder were acquired. COMPARISON: None. FINDINGS: Bones: No fractures or dislocations. Ezvn-di-ihodygev acromioclavicular joint osteoarthritic changes are seen. No suspicious bony lesions. Visualized ribs appear intact. Soft tissues: Linear calcification involving soft tissue over superior aspect of greater tuberosity is seen. IMPRESSION: No acute shoulder fracture or dislocation. Hoxi-di-[id number] acromioclavicular joint osteoarthritis. Linear calcification adjacent to greater tuberosity concerning for calcific tendinitis involving distal rotator cuff tendon. Dictated by: Andrew Vasquez M.D. on 09/07/2024 at 20:03 Approved by: Andrew Vasquez M.D. on 09/07/2024 at 20:04 [facility] Narrative Medical decision making narrative: Well-appearing patient with musculoskeletal shoulder pain after falling from a small ladder. No other injury. Patient denying head injury. X-ray imaging of shoulder negative for acute fracture. Patient placed in sling for comfort, she was advised to continue taking Tylenol and applying ice as needed for pain. She may also take a small amount of ibuprofen for anti-inflammatory properties. Discharge Plan Departure Patient Disposition: Home Clinical Impression: Sprain of right shoulder Qualifiers: Encounter type: initial encounter Shoulder sprain type: unspecified sprain Qualified Code(s): S43.401A - Unspecified sprain of right shoulder joint, initial encounter Instructions: DI for Shoulder Sprain Activity Restrictions/Additional Instructions: Wear the sling as needed for comfort. Do gentle hpaof-vl-kejihd exercises to prevent stiffening of the joint. You may take Tylenol and ibuprofen per label instructions for pain. Apply ice as needed for comfort. If you continue to experience pain after several days then it may be worthwhile to reach out to a bone and joint doctor for additional assessment Prescriptions: No Action losartan 25 mg tablet 25 mg PO DAILY Qty: 90 3RF Fish Oil 500 mg PO QDAY Qty: 0 tretinoin [Retin-A] 0.05 % cream 1 killian Topical PRN PRN (Reason: Rash) Qty: 0 hydroxyzine HCl 25 mg tablet 25 mg PO BEDTIME Qty: 90 3RF alendronate [Fosamax] 70 mg tablet 70 mg PO QWEEK Qty: 12 2RF Rx Instructions: take on one day (same day) each week in morning only. don't lie down flat for minimum 30 minutes after taking med. sumatriptan succinate 100 mg tablet See Rx Instructions PO .COMPLEX Qty: 7 0RF Rx Instructions: take 1 tab at onset of headache; if no relief, may repeat 1 tab after at least 2 hrs; max = 2 tabs/24 hrs PO calcium carbonate [Calcium 500] 500 mg calcium (1,250 mg) Tablet 500 mg DAILY cholecalciferol (vitamin D3) [Vitamin D3] 1,000 unit Capsule 1,000 unit DAILY niacinamide 50 mg Tablet 50 mg PO BID methocarbamol 500 mg tablet 500 mg PO TID Qty: 30 0RF Referrals: Celeste Murillo MD [Physician] - Radha Gray MD [Primary Care Provider] - Stand Alone Forms: Patient Portal/API/Survey
[2024-09-07 20:00] VITALS: BP 138/75; PULSE 72; RESP 18; O2SAT 97
== END 2024-09-07 20:34 | disposition home or self-care (01) ==
PROVIDERS: Emergency Provider Emergency Medicine; Family Provider Family Medicine; PCP Student in an Organized Health Care Education/Training Program
DX: S43.401A Unspecified sprain of right shoulder joint, initial encounter (principal); W11.XXXA Fall on and from ladder, initial encounter
CPT/HCPCS: 73030; 99283

== ENCOUNTER → 2024-09-20 08:44 | Outpatient (CLI) | payer MEDICARE, OTHER, SELFPAY ==
--- NOTE | 2024-09-20 | DI.MRI.S_ITS ---
PROCEDURE: MR SHOULDER RT WO CON INDICATIONS: rotator cuff tear or rupture TECHNIQUE: Noncontrast oblique coronal T2 fast spin echo with fat saturation, oblique sagittal T1 spin echo and T2 fast spin echo with fat saturation, axial T1 spin echo and T2 fast spin echo with fat saturation through the shoulder. COMPARISON: [facility], CR, XR SHOULDER RT MIN 2V, 09/07/2024, 19:43. FINDINGS: Image quality: Excellent. Rotator cuff: There is full-thickness tearing of the supraspinatus tendon at the distal insertion measuring 0.9 cm in anterior-posterior dimension with up to 1.1 cm of proximal tendon retraction. Moderate infraspinatus tendinosis. Teres minor tendon is intact. There is low-grade partial articular sided tearing of the subscapularis tendon at the superior insertion superimposed on mild tendinosis. Mild edema is seen within the medial portion of the supraspinatus muscle compatible with low-grade muscle strain. No significant rotator cuff muscle atrophy. Bones and bursae: No acute trabecular bone injury or fracture. Prominent cystic changes are seen at the posterior superior humeral head and greater tuberosity as well as the lesser tuberosity near the rotator cuff tendon insertions, likely related to chronic tendon traction. Moderate to high-grade partial-thickness cartilage irregularity is seen in the glenohumeral joint with subchondral cystic changes and subchondral edema. Mild marginal osteophyte formation. Moderate degenerative changes are seen at the acromioclavicular joint with subchondral cystic changes, subchondral edema, marginal osteophytes. Small amount of fluid is seen in the subacromial/subdeltoid bursa that communicates with the glenohumeral joint space. No significant glenohumeral effusion. Capsule and soft tissues: No acute displaced labral tear. Moderate proximal biceps long head tendinosis. There is partial effacement of the fat in the rotator interval. Glenohumeral ligaments are intact. IMPRESSION: 1. Full-thickness tearing of the supraspinatus tendon at the distal insertion measuring 0.9 cm in anterior-posterior dimension with up to 1.1 cm of proximal tendon retraction. 2. Low-grade strain within the medial supraspinatus muscle. 3. Mild subscapularis tendinosis and low-grade partial intrasubstance tearing at the superior insertion. 4. Moderate proximal biceps long head tendinosis. 5. 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 6. Moderate acromioclavicular joint osteoarthrosis. 7. Small subacromial/subdeltoid bursal effusion communicates with the glenohumeral joint space. Approved by: Bo Mckeon M.D. on 09/20/2024 at 13:13
== END ==
PROVIDERS: Family Provider Family Medicine; PCP Student in an Organized Health Care Education/Training Program; Referring Provider Orthopaedic Surgery; Visit Provider Orthopaedic Surgery
DX: M75.121 Complete rotator cuff tear or rupture of right shoulder, not specified as traumatic (principal); M94.211 Chondromalacia, right shoulder; M19.011 Primary osteoarthritis, right shoulder; M25.411 Effusion, right shoulder
CPT/HCPCS: 73221

== ENCOUNTER → 2025-02-27 12:43 | Outpatient (CLI) | payer MEDICARE, OTHER, SELFPAY ==
--- NOTE | 2025-02-27 12:45 | DI.MG.S_ITS ---
MM screening mammo BI: 02/27/2025. BI-RADS: 2 CLINICAL: 70-year old female for bilateral screening mammogram. No Tyrer-Cuzick risk score calculation due to the patient's personal history of breast cancer. Patient reports a history of left breast carcinoma diagnosed at age 62. No first-degree family history of breast cancer. The patient had a prior left breast biopsy. PRIOR EXAMS 02/27/2024, 02/25/2023, 02/24/2022, 02/23/2021, 06/06/2020, 02/21/2020, 02/05/2019, 07/26/2018, 01/20/2018, 09/28/2017, 08/18/2017, 07/26/2017, 07/12/2017, 01/05/2017, 12/30/2016, 12/29/2015. MAMMOGRAPHY TECHNIQUE: 2D and 3D (tomosynthesis) digital mammographic views obtained, with additional images as needed for full coverage. Current study was also evaluated with a Computer Aided Detection (CAD) system. DENSITY C. The breasts are heterogeneously dense, which may obscure small masses. MAMMOGRAPHY FINDINGS Right: No suspicious mass, asymmetry, microcalcification, or other abnormality seen. Left: Benign-appearing post-surgical changes noted on the left. There are no suspicious masses, calcifications, or other findings in the breast. IMPRESSION: Right * No evidence of malignancy. Left * No evidence of malignancy with benign findings. RECOMMENDATIONS Bilateral * Annual screening mammography. OVERALL ASSESSMENT CATEGORY BI-RADS-2: Benign. The [employer] recommends annual screening mammography beginning at age 40 for women with average risk of breast cancer. ELECTRONICALLY SIGNED: Erica Michael M.D. on 03/04/2025 at 02:01:59 AM PT Interpreting Station ID: [id number]
== END ==
LOC: MAMMO 12:44
PROVIDERS: Family Provider Family Medicine; PCP Student in an Organized Health Care Education/Training Program; Referring Provider Student in an Organized Health Care Education/Training Program; Visit Provider Student in an Organized Health Care Education/Training Program
DX: Z12.31 Encounter for screening mammogram for malignant neoplasm of breast (principal); R92.333 Mammographic heterogeneous density, bilateral breasts; Z85.3 Personal history of malignant neoplasm of breast
CPT/HCPCS: 77063; 77067

== ENCOUNTER → 2025-03-04 11:43 | Outpatient (CLI) | payer MEDICARE, OTHER, SELFPAY ==
--- NOTE | 2025-03-04 11:44 | DI.RAD.S_ITS ---
PROCEDURE: XR DEXA AXIAL SKELETON INDICATIONS: [employer] use of fosamax COMPARISON: [facility], , XR DEXA AXIAL SKELETON, 06/23/2022, 15:39. FINDINGS: Lumbar Spine: Bone mineral density 0.806 g/cm2, T score -2.2, compared to -2.5. Left Femoral Neck: Bone mineral density 0.704 g/cm2, T score -1.3, compared to -1.4. Left Hip: Bone mineral density 0.743 g/cm2, T score -1.6, unchanged. Fracture Risk Calculation (when applicable): 10-year fracture risk of a major osteoporotic fracture 9.2 percent and of a hip fracture 1.4 percent. (T score greater or equal to -1.0 to: NORMAL) (T score from -1.1 to -2.4: OSTEOPENIA) (T score less than or equal to -2.5: OSTEOPOROSIS) IMPRESSION: Improved bone mineral density particularly within the lumbar spine now moderate to severe osteopenic compared to osteoporosis. Follow-up guidelines as follows: Osteoporosis: Consider a repeat DEXA and Vertebral Fracture Assessment (VFA) exam in 2 years or sooner if medically necessary, to reassess this patient's status. Osteopenia: Consider a repeat DEXA in 2-3 years to reassess this patient's status, or if there is a new clinical indication. Normal: Consider a repeat DEXA in 5 years or sooner, or if there is a new clinical indication. All treatment decisions require clinical judgment and consideration of individual patient factors, including patient preferences, comorbidities, previous drug use, risk factors not captured in the FRAX model (e.g., frailty, falls, vitamin D deficiency, increased bone turnover, interval significant decline in bone density ) and possible under- or over-estimation of fracture risk by FRAX. In addition, the NOF Guide recommends that FDA-approved medical therapies be considered in postmenopausal women and men age >= 50 years with a: * Hip or vertebral (clinical or morphometric) fracture * T-score of <=-2.5 at the spine or hip * Ten-year fracture probability by FRAX of >= 3% for hip fracture or >=20% for major osteoporotic fracture. Dictated by: Kelly Ohara M.D. on 03/04/2025 at 17:29 Approved by: Kelly Ohara M.D. on 03/04/2025 at 17:31
== END ==
PROVIDERS: Family Provider Family Medicine; PCP Student in an Organized Health Care Education/Training Program; Referring Provider Student in an Organized Health Care Education/Training Program; Visit Provider Student in an Organized Health Care Education/Training Program
DX: M81.0 Age-related osteoporosis without current pathological fracture (principal); M85.89 Other specified disorders of bone density and structure, multiple sites
CPT/HCPCS: 77080